=== PATIENT | male | born 1945 | race Two or more races ===

== ENCOUNTER 2019-03-28 14:03 | Inpatient (IN) | payer MEDICARE, OTHER ==
[~2019-03-28] VITALS: Ht 172.7 cm; Wt 81.6 kg
[~2019-03-28 14:03] MED LIST: ATEN50TA PO
[2019-03-28] MEDS ORDERED: ASPI81TA31 PO (14:19)
[2019-03-28] MEDS ORDERED: LOSARTAN (14:19)
[2019-03-28] MEDS ORDERED: LIPITOR (14:19)
[2019-03-28] MEDS ORDERED: IV NORMAL SALINE 1000 ML BAG IV ONE (14:45)
[2019-03-28 14:58] LABS: BASOPHILS % (AUTO) 0.3 % (0.0-2.0); EOSINOPHILS # (AUTO) 0.6 K/uL (0.0-0.7); EOSINOPHILS % (AUTO) 7.3 % (0.0-7.0); HEMATOCRIT 40.8 % (36.7-47.1); HEMOGLOBIN 13.8 g/dL (12.5-16.3); LYMPHOCYTES # (AUTO) 1.9 K/uL (20.0-40.0); LYMPHOCYTES % (AUTO) 23.1 % (20.5-51.5); MEAN CORPUSCULAR HGB CONC 34 g/dL (32.5-36.3); MEAN CORPUSCULAR VOLUME 97.7 fL (73.0-96.2); MONOCYTES # (AUTO) 0.8 K/uL (2.0-10.0); MONOCYTES % (AUTO) 10.4 % (0.0-11.0); NEUTROPHILS # (AUTO) 4.7 K/uL (1.8-8.9); NEUTROPHILS % (AUTO) 58.9 % (38.5-71.5); PLATELET COUNT (AUTO) 198 K/uL (152-348); RED BLOOD CELL COUNT(AUTO) 4.18 MIL/uL (4.06-5.63)
[2019-03-28] MEDS ORDERED: ALBUTEROL SULFATE 2.5 MG/3 ML NEBU NEB ONE (15:00)
[2019-03-28] MEDS ORDERED: IPRATROPIUM BROMIDE 0.5 MG/2.5 ML NEBU NEB ONE (15:00)
--- NOTE | 2019-03-28 15:02 | NUR ---
Pt out of ER for CT.
[2019-03-28 15:08] LABS: POTASSIUM 3.7 mmol/L (3.5-5.1)
[2019-03-28 15:13] LABS: BILIRUBIN,DIRECT 0.1 mg/dL (0.0-0.2); BILIRUBIN,TOTAL 0.7 mg/dL (0.2-1.0); TOTAL PROTEIN, SERUM 7.4 g/dL (6.4-8.2)
--- NOTE | 2019-03-28 15:37 | NUR ---
Pt back from Ct, resting in bed.
[2019-03-28] MEDS ORDERED: ALBUTEROL SULFATE 2.5 MG/3 ML NEBU ONE (15:44)
[2019-03-28] MEDS ORDERED: IPRATROPIUM BROMIDE 0.5 MG/2.5 ML NEBU ONE (15:44)
[2019-03-28] MEDS ORDERED: ONDANSETRON 4 MG/2 ML VIAL IV PRN (18:45)
[2019-03-28] MEDS ORDERED: MAGNESIUM HYDROXIDE 30 ML LIQUID UDC PO PRN (18:45)
[2019-03-28] MEDS ORDERED: Z GUARD REMEDY PASTE 57 GM TUBE TOP PRN (18:45)
[2019-03-28] MEDS ORDERED: ACETAMINOPHEN 325 MG TABLET PO PRN (18:45)
--- NOTE | 2019-03-28 19:30 | NUR ---
Pt had a witnessed fall in the bathroom, Pt was in room 2A, walked towards nursing station and asked to the go to the bathroom. Patient was walking with steady gait with a cane and was ambulating in the room by himself for several minutes, until he came to the bathroom door and lost his balance. Patient helped back into bed by staff nurses. Pt c/o pain on left rib and left shoulder. No lacerations noted, no KO. pt has an existing bruise on left eye, and has a cast on left forearm from previous fall. ANDREAD notified of fall. 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
[2019-03-28] MEDS ORDERED: ONDANSETRON ODT 4 MG TAB.RAPDIS SL ONE (19:45)
[2019-03-28] MEDS ORDERED: HYDROCODONE/APAP 5-325MG TABLET PO ONE (19:45)
[2019-03-28] MEDS ORDERED: HYDROCODONE/APAP 5-325MG TABLET ONE (19:46)
--- NOTE | 2019-03-28 19:47 | NUR ---
Xray at bedside.
[2019-03-28] MEDS ORDERED: ONDANSETRON ODT 4 MG TAB.RAPDIS ONE (19:49)
--- NOTE | 2019-03-28 20:19 | NUR ---
Paged Dr Barrett as ordered for consult.
--- NOTE | 2019-03-28 20:40 | NUR ---
Report given to Faustina ESPINO tele.
[2019-03-28 21:00] VITALS: BP 121/67
--- NOTE | 2019-03-28 21:15 | NUR ---
Received patient from ER. Dx: Syncope. Patient is A/Ox4. No signs of acute distress noted. Complains of 4/10 pain. Offered PRN pain medication, but patient didn't want to take any yet. Vitals WNL. Sling on left arm is intact, splint on left forearm is intact. Belongings and list brought with patient. Patient oriented to room and unit. Safety measures initiated. Bed is low and locked, call light within reach. Will continue with admission process.
[2019-03-28] MEDS: HYDROCODONE/APAP 5-325MG TABLET PO PRN (23:18)
[2019-03-29 00:13] VITALS: BP 153/73
[2019-03-29] MEDS: HYDROCODONE/APAP 5-325MG TABLET PO PRN ×3 (03:34→20:19)
[2019-03-29 04:49] VITALS: BP 112/67
--- NOTE | 2019-03-29 06:04 | NUR ---
Patient slept well throughout shift. No signs of acute distress noted. Complained of pain with PRN [place] given x2 and was effective. Patient ambulated to restroom with cane and assistance. Safety measures given. Will endorse to next shift.
[2019-03-29 06:31] LABS: BASOPHILS % (AUTO) 0.3 % (0.0-2.0); EOSINOPHILS # (AUTO) 0.6 K/uL (0.0-0.7); HEMOGLOBIN 13.6 g/dL (12.5-16.3); NEUTROPHILS # (AUTO) 5.3 K/uL (1.8-8.9)
[2019-03-29 06:37] LABS: EOSINOPHILS % (AUTO) 7.5 % (0.0-7.0); HEMATOCRIT 39.2 % (36.7-47.1); LYMPHOCYTES % (AUTO) 22.9 % (20.5-51.5); MEAN CORPUSCULAR HEMOGLOBIN 34.6 uug (23.8-33.4); MEAN CORPUSCULAR HGB CONC 35 g/dL (32.5-36.3); MEAN CORPUSCULAR VOLUME 99.8 fL (73.0-96.2); MONOCYTES # (AUTO) 0.7 K/uL (2.0-10.0); MONOCYTES % (AUTO) 7.6 % (0.0-11.0); NEUTROPHILS % (AUTO) 61.7 % (38.5-71.5); PLATELET COUNT (AUTO) 183 K/uL (152-348); RED BLOOD CELL COUNT(AUTO) 3.93 MIL/uL (4.06-5.63); WHITE BLOOD COUNT (AUTO) 8.6 K/uL (3.6-10.2)
[2019-03-29 06:46] LABS: CARBON DIOXIDE 26 mmol/L (21-32); CHLORIDE 105 mmol/L (98-107); CHOLESTEROL 145 mg/dL (<200); CREATININE 0.8 mg/dL (0.6-1.3); GLUCOSE 120 mg/dL (74-106); HDL CHOLESTEROL 37 mg/dL (40-60); MAGNESIUM 1.9 mg/dL (1.8-2.4); PHOSPHOROUS 4.4 mg/dL (2.5-4.9); POTASSIUM 3.7 mmol/L (3.5-5.1); TRIGLYCERIDES 137 MG/DL (30-150); UREA NITROGEN, BLOOD 10 mg/dL (7-18)
[2019-03-29 06:51] LABS: THYROID STIMULATING HORMONE 4.336 mIU/mL (0.358-3.740)
--- NOTE | 2019-03-29 07:20 | NUR ---
Received patient in bed, resting. Patient displays no signs of any acute distress or shortness of breath in the moment. IV in tact, on right a/c. Bed in lowest position, locked, with side rails up x 2. Call light within reach. Splint and sling on left arm in tact. Safety measures in place. Will continue to monitor.
[2019-03-29] MEDS ORDERED: MORPHINE SULFATE 2 MG/1 ML DISP.SYRIN IV PRN (07:45)
[2019-03-29] MEDS: ASPIRIN 81 MG TAB.CHEW PO SCH (08:42)
[2019-03-29] MEDS: NICOTINE 21 MG/24HR PATCH TD SCH (08:43)
[2019-03-29] MEDS: ATENOLOL 50 MG TABLET PO SCH (08:43)
[2019-03-29] MEDS: IV D5/ 0.9% NACL 1,000 ML IV PRN ×2 (08:48→23:30)
--- NOTE | 2019-03-29 09:30 | NUR ---
Seen by Dr. Tan for medical follow up with orders. See notes. Dr. Barrett notified for ortho follow stated he will come and assess patient in afternoon for ortho eval.
[2019-03-29] MEDS ORDERED: ATOR20TA PO (10:54)
[2019-03-29] MEDS ORDERED: LOSA25TA27 PO (10:55)
[2019-03-29 11:12] VITALS: BP 132/57
--- NOTE | 2019-03-29 12:00 | NUR ---
Seen by OT. See notes.
[2019-03-29] MEDS: LOSARTAN POTASSIUM 25 MG TABLET PO SCH (12:45)
--- NOTE | 2019-03-29 14:56 | NUR ---
Continue with pain management. Brace on left arm maintained. Still waiting for Dr. Barrett for consult. Sinus rhythm on monitor.
[2019-03-29 15:11] VITALS: BP 121/64
--- NOTE | 2019-03-29 15:31 | NUR ---
Seen by Dr. Barrett, for ortho consult who stated there was no need for surgery. PT/OT follow up in three weeks. Patient to continue left arm sling.
--- NOTE | 2019-03-29 19:01 | NUR ---
No acute change in client condition or discomfort/ distress noted. As per Dr. Barrett, patient ready to be discharged. However, continue with pain management for the client. Patient to follow up with hospitalist in the morning. Ice pack applied to left shoulder to alleviate pain. Sling and splint on left shoulder/ forearm in tact and in place. Continue with pain management and safety measures to prevent further complications.
--- NOTE | 2019-03-29 20:00 | NUR ---
PATIENT AWAKE, SITTING IN CHAIR AT BEDSIDE. A/O X4. C/O PAIN IN LEFT SHOULDER. LEFT UPPER ARM, NOTED IN A SPLINT AND SLING. ICE APPLIED. PATIENT IS ALSO C/O PAIN ON LEFT RIB SIDE. ASKING FOR A PAIN PATCH TO BE APPLIED TO AFFECTED AREA. WILL NOTIFY . PATRICK WNL. IVF INFUSING WELL TO RIGHT AC #20 GAUGE. ON TELE SR. CALL LIGHT IN REACH. ALL NEEDS ATTENDED. WILL CONTINUE TO MONITOR AND ASSESS.
[2019-03-29 20:07] VITALS: BP 140/68
[2019-03-29] MEDS ORDERED: IBUPROFEN 400 MG TABLET PO PRN (20:15)
--- NOTE | 2019-03-29 20:15 | NUR ---
PATIENT GIVEN NORCO 1 TAB PO PRN FOR PAIN AND LIDOCAINE PATCH APPLIED TO LEFT SIDE/RIB AREA. CALL LIGHT IN REACH. ALL NEEDS ATTENDED, WILL CONTINUE TO MONITOR AND ASSESS.
[2019-03-29] MEDS: ATORVASTATIN 20 MG TABLET PO SCH (20:18)
[2019-03-29] MEDS: LIDOCAINE 5% PATCH TD PRN (20:19)
[2019-03-29 22:00] VITALS: BP_SYST 140; BP_SYST 154; BP_SYST 157; BP_DIAS 68; BP_DIAS 72; BP_DIAS 79
[2019-03-30 00:22] VITALS: BP 154/79
[2019-03-30] MEDS: HYDROCODONE/APAP 5-325MG TABLET PO PRN ×6 (00:43→23:18)
[2019-03-30 04:47] VITALS: BP 162/71
--- NOTE | 2019-03-30 05:54 | NUR ---
PATIENT ASLEEP IN BED. WAS GIVEN NORCO 1 TAB PO PRN FOR PAIN. IVF INFUSING WELL ORDERED. SLEPT AT INTERVALS THROUGHOUT THE NIGHT. ALL NEEDS ATTENDED.
[2019-03-30 06:30] LABS: BASOPHILS % (AUTO) 0.2 % (0.0-2.0); EOSINOPHILS # (AUTO) 0.6 K/uL (0.0-0.7); EOSINOPHILS % (AUTO) 6.4 % (0.0-7.0); HEMATOCRIT 35.2 % (36.7-47.1); HEMOGLOBIN 12.4 g/dL (12.5-16.3); LYMPHOCYTES # (AUTO) 2.3 K/uL (20.0-40.0); LYMPHOCYTES % (AUTO) 25.8 % (20.5-51.5); MEAN CORPUSCULAR HEMOGLOBIN 34.9 uug (23.8-33.4); MEAN CORPUSCULAR HGB CONC 35 g/dL (32.5-36.3); MEAN CORPUSCULAR VOLUME 99.2 fL (73.0-96.2); MONOCYTES # (AUTO) 0.7 K/uL (2.0-10.0); MONOCYTES % (AUTO) 7.8 % (0.0-11.0); NEUTROPHILS # (AUTO) 5.4 K/uL (1.8-8.9); NEUTROPHILS % (AUTO) 59.8 % (38.5-71.5); PLATELET COUNT (AUTO) 170 K/uL (152-348); RED BLOOD CELL COUNT(AUTO) 3.55 MIL/uL (4.06-5.63)
[2019-03-30 06:42] LABS: CARBON DIOXIDE 27 mmol/L (21-32); CHLORIDE 106 mmol/L (98-107); CREATININE 0.9 mg/dL (0.6-1.3); GLUCOSE 117 mg/dL (74-106); MAGNESIUM 1.8 mg/dL (1.8-2.4); PHOSPHOROUS 3.8 mg/dL (2.5-4.9); POTASSIUM 3.9 mmol/L (3.5-5.1); UREA NITROGEN, BLOOD 10 mg/dL (7-18)
--- NOTE | 2019-03-30 08:00 | NUR ---
PATIENT AWAKE, RESTING IN BED A/O X4. C/O PAIN IN LEFT SHOULDER. LEFT UPPER ARM, NOTED IN A SPLINT AND SLING. PATIENT IS ALSO C/O PAIN ON LEFT RIB SIDE. VS WNL. IVF INFUSING WELL TO RIGHT AC #20 GAUGE. ON TELE SR. CALL LIGHT IN REACH. ALL NEEDS ATTENDED. WILL CONTINUE TO MONITOR AND ASSESS.
[2019-03-30] MEDS ORDERED: HYDR-3326 PO (08:07)
[2019-03-30] MEDS: NICOTINE 21 MG/24HR PATCH TD SCH (09:33)
[2019-03-30] MEDS: ATENOLOL 50 MG TABLET PO SCH (09:33)
[2019-03-30] MEDS: LOSARTAN POTASSIUM 25 MG TABLET PO SCH (09:35)
[2019-03-30] MEDS: ASPIRIN 81 MG TAB.CHEW PO SCH (09:35)
[2019-03-30 11:58] VITALS: BP 144/72
--- NOTE | 2019-03-30 12:10 | NUR ---
PT RESTING COMFORTABLY IN ROOM. PT SITTING AT EDGE OF BED VISITING WITH FAMILY. PT AWAKE, ALERT AND ORIENTED X 3. PT IS MEDICATION COMPLIANT. PT DENIES PAIN AT THIS TIME. BED LOCKED AND IN LOW POSITION. CALL LIGHT WITHIN REACH. PT ASSISTED TO BATHROOM FOR BM. PT EVALUATED PT. DC STATUS IN PROGRESS PENDING APPROVAL. TELEMETRY MONITORING WITH SINUS RHYTHM. WILL CONTINUE TO MONITOR.
[2019-03-30 13:42] VITALS: BP 144/72
--- NOTE | 2019-03-30 14:27 | NUR ---
PT WILL BE DISCHARGED FROM [facility] TOMORROW BEFORE NOON BASED ON REQUIREMENTS PLACED BY RECEIVING FACILITY.
[2019-03-30 15:41] VITALS: BP 147/64
--- NOTE | 2019-03-30 18:00 | NUR ---
PT IS RESTING COMFORTABLY IN BED. PT AWAKE, ALERT AND ORIENTED X 3. NO ACUTE DISTRESS OR SOB NOTED. PT GOES TO BATHROOM WITH ASSISTANCE. BED LOCKED AND IN LOW POSITION. PT IS MED COMPLIANT AND COOPERATIVE. PT TO BE DISCHARGED TOMORROW BEFORE NOON. VITAL SIGNS STABLE. TELE MONITORING WITH SINUS RHYTHM. WILL GIVE REPORT TO INCOMING SHIFT ACCORDINGLY.
[2019-03-30] MEDS: IV D5/ 0.9% NACL 1,000 ML IV PRN (18:18)
--- NOTE | 2019-03-30 19:00 | NUR ---
PATIENT ALERT ORIENTED, NO SOB NO CHEST PAIN, TELE MONITOR SINUS RHYTHM. PATIENT FAMILY AT BEDSIDE. PATIENT WITH LEFT ARM SLING IN PLACE, PATIENT SEATED AT THE BED WITH FEET DANGLE DOWN. PATIENT HAS COMPLAIN OF PAIN AT THIS TIME. PATIENT WAS ASSISTED WITH TOILETING, INSTRUCTED PATIENT TO USE CALL LIGHT WHEN WANT TO GO TO THE BATHROOM, OR FOR ANYTHING ELSE. CONT TO MONITOR.
[2019-03-30 20:00] VITALS: BP 152/87
[2019-03-30] MEDS: ATORVASTATIN 20 MG TABLET PO SCH ×2 (21:33→22:00)
--- NOTE | 2019-03-30 21:35 | NUR ---
PATIENT LEFT ARM IN SLING AND WITH SWELLING OF HANDS AND FINGERS, NAIL BEDS PINK, PATIENT ABLE TO FEEL FINGERS WHEN GIVEN STIMULATIONS, INSTRUCTED AND TEACH PATIENT TO LAY DOWN IN BED, SO THAT LEFT ARMS CAN BE ELEVATED WITH PILLOW. PATIENT ALSO THAT BILATERAL THIGH HAS SOME DISCOLORATION, AGAIN INSTRUCTED PATIENT THE HE NEEDS TO LAY IN BED SO THAT LEGS CAN ELEVATED WITH PILLOW, PATIENT REFUSED TO FOLLOW. MD WILL BE NOTIFIED REGARDING THE CONCERNS. PATIENT ALSO REFUSED IV HYDRATION, ASK STAFF TO STOP THE IV.
--- NOTE | 2019-03-30 21:40 | NUR ---
PATIENT REFUSED TELE MONITOR, AND REFUSED IV HYDRATION AT THIS TIME. WILL CONTINUE TO OFFER.
--- NOTE | 2019-03-30 21:42 | NUR ---
PATIENT HAS LEFT HAND/ARM SWELLING AND BILATERAL LEG WITH SOME DISCOLORATION, NOTIFY DR. MALDONADO WITH ORDDER OF CT SCAN OF THE LEFT ARM AND PVT PUMP. INSTRUCTED PATIENT TO STAY LAY DOWN SO THAT ARMS CAN BE ELEVATED, AND BILATERAL CAN BE ELEVATED. PATIENT HAS ANXIETY TRIED TO CALM AND REDIRECT BEHAVIOR, BUT REFUSED TO FALLOW.
--- NOTE | 2019-03-30 22:00 | NUR ---
WASHCOAT WIPER CAME TO TAKE PATIENT FOR CT SCAN OF THE R ARM BUT REFUSED.
--- NOTE | 2019-03-30 23:03 | NUR ---
PATIENT BP ELEVATED AND HAS PAIN ON LEFT ARM BUT REFUSED TO TAKE PAIN MEDICATIONS. PATIENT STATED HE WANTS TO WAIT FOR THE ER DOCTOR.
[2019-03-31] MEDS: LIDOCAINE 5% PATCH TD PRN (00:28)
--- NOTE | 2019-03-31 00:31 | NUR ---
PATIENT REFUSED TELE MONITOR AFTER AN HOUR WAS PUT BACK ON. PATIENT STATED "I DON'T WANT IT". PATIENT WAS GIVEN LIDOCAINE PATCH FOR PAIN. PATIENT CONTINUE TO REFUSED THE CT SCAN OF LEFT ARM.
[2019-03-31 00:42] VITALS: BP 186/93
--- NOTE | 2019-03-31 00:58 | NUR ---
PATIENT ALERT ORIENTED, PATIENT SEATED DANGLE FEET, PATIENT REFUSED TO LAY IN BED SO THAT LEFT ARM AND LOWER EXTREMTY CAN BE ELEVATED, LEFT ARM SLING ADJUSTED SO THAT LEFT ARM WILL ELEVATED. PATIENT STATED THAT MD ORDERED ULTRA SOUND OF LEFT ARM DURING THEIR CONVERSATION WITH DR. MALDONADO. PATIENT CONTINUE TO REFUSED THE TEST, CONT TO MONITOR.
[2019-03-31 01:00] VITALS: BP 139/80
[2019-03-31] MEDS: HYDROCODONE/APAP 5-325MG TABLET PO PRN ×2 (04:14→09:30)
--- NOTE | 2019-03-31 04:33 | NUR ---
PATIENT IV SITE INFILTRATED, TRIED TO INSERT NEW IV LINE, PATIENT REFUSED TO BE INSERTED IV CATH, AND REFUSED IV HYDRATION.
[2019-03-31 05:30] VITALS: BP 117/60
--- NOTE | 2019-03-31 06:46 | NUR ---
PATIENT ASLEEP BUT EASILY AROUSABLE. PATIENT ON TELE MONITOR SINUS RYTHM. PATIENT CONTINUE ON PAIN MANAGEMENT OF LEFT RIBS PAIN AND LEFT SHOULDER PAIN. PATIENT SLING WAS IN PLACE, CHECK FOR CIRCULATION, SWELLING OF L HANDS AND L FINGERS SUBSIDING SLOWLY. PATIENT ABLE TO MOVED FINGERS, COLOR WNL, ABLE TO FEEL WHEN TOUCH. PATIENT WAS KEPT COMFORTABLE MUCH POSSIBLE, TRIED TO KEEP L ARM ELEVATED WITH PILLOW BUT REFUSED. CONT TO MONITOR.
[2019-03-31] MEDS: LOSARTAN POTASSIUM 25 MG TABLET PO SCH (08:45)
[2019-03-31] MEDS: ASPIRIN 81 MG TAB.CHEW PO SCH (08:45)
[2019-03-31] MEDS: ATENOLOL 50 MG TABLET PO SCH (08:46)
[2019-03-31] MEDS: NICOTINE 21 MG/24HR PATCH TD SCH (08:47)
--- NOTE | 2019-03-31 09:04 | NUR ---
PATIENT IS AWAKE, NO SOB,RESP EVEN NONLABORED,SKIN WARM AND DRY TO TOUCH, PATIENT NOTED WITH EPISODES OF AGGRESSIVE BEHAVIOR, OFFERED PATIENT PAIN MEDICATION FOR THE PAIN IN THE LEFT SHOULDER OFFERED PAIN MEDICATION X3, REFUSED AND STATED HE WANTS PAIN MEDICATION LATTER NOT NOW. ASSISTED WITH BREAKFAST AND INSTRUCTED PATIENT TO CALL FOR HELP, PATIENT REQUESTED TO SEE DR SPARKLE HOUSER EXAMINED PATIENT.
--- NOTE | 2019-03-31 10:38 | NUR ---
EXAMINED BY PT AND OT, PATIENT IS OK TO AMBULATE TO THE BATHROOM WITH TWO PEOPLE ASSIST.
[2019-03-31 11:32] VITALS: BP 122/67
--- NOTE | 2019-03-31 12:18 | NUR ---
patient's belongings are accounted and signed, discharge instructions are given to patient, verbalized understanding of instructions, patient made aware about follow up with orthopedic dr peguero [id number] [address], suit [address][id number],[place] [id number] phone number [phone].
--- NOTE | 2019-03-31 12:36 | NUR ---
report given to nurse from [facility] name JOSE E RN, instructions given for follow up with dr peguero. patient is picked up by [facility], transported by [facility], patient is alert, oriented x4, verbally responsive,no sob,resp even nonlabored,skin warm and dry to touch, caser up spoke to patient, patient verbalized full understood discharge plan, and agreed to plan. no distress noted, patient refused the pictures to be taken for bluish purplish discoloration 2cm x2xm to left outer knee, and small discoloration to left ankle, discoloration to left arm pit, skin intact. patient discharged to [facility]
== END 2019-03-31 12:45 | DRG 312 ==
LOC: ER 14:03 → TELE3 20:41
PROVIDERS: ADMIT Student in an Organized Health Care Education/Training Program; ATTEND Student in an Organized Health Care Education/Training Program
PROC: 2W3BX1Z Immobilization of Left Upper Arm using Splint (ICD-10-PCS; principal; 2019-03-28)
DX: I95.1 Orthostatic hypotension (principal); S42.225A 2-part nondisplaced fracture of surgical neck of left humerus, initial encounter for closed fracture; S42.255A Nondisplaced fracture of greater tuberosity of left humerus, initial encounter for closed fracture; J44.1 Chronic obstructive pulmonary disease with (acute) exacerbation; R55 Syncope and collapse; W18.30XA Fall on same level, unspecified, initial encounter; Y92.89 Other specified places as the place of occurrence of the external cause; J32.4 Chronic pansinusitis; W18.39XA Other fall on same level, initial encounter; Y92.039 Unspecified place in apartment as the place of occurrence of the external cause; S00.12XA Contusion of left eyelid and periocular area, initial encounter; S20.212A Contusion of left front wall of thorax, initial encounter; F17.210 Nicotine dependence, cigarettes, uncomplicated; I25.10 Atherosclerotic heart disease of native coronary artery without angina pectoris; E78.5 Hyperlipidemia, unspecified; M19.90 Unspecified osteoarthritis, unspecified site; I70.0 Atherosclerosis of aorta; I10 Essential (primary) hypertension; D64.9 Anemia, unspecified; Z79.899 Other long term (current) drug therapy
CPT/HCPCS: 36415; 70030-TC; 70450; 70480; 71101; 72125; 73030; 73130; 83735; 84100; 84443; 85025; 85730; 93005; 93307; 93880; A4663; G0378; J2270; J3490; J3590; J7042; Q0162